=== PATIENT | female | born 1990 | race Caucasian/White ===

== ENCOUNTER 2023-08-15 07:07 | Emergency (ER) | payer BC ==
[~2023-08-15] VITALS: Ht 172.7 cm; Wt 95.8 kg
[2023-08-15] MEDS ORDERED: PREDNISONE20 MG PO (07:21)
[2023-08-15 07:25] VITALS: BP 149/91
== END 2023-08-15 07:26 | disposition home or self-care (01) ==
LOC: ED 07:07
DX: G51.0 Bell's palsy (principal)
CPT/HCPCS: 99283